=== PATIENT | male | born 1970 | race Caucasian/White ===

== ENCOUNTER 2017-07-30 00:22 | Emergency (ER) | payer BC ==
--- NOTE | 2017-07-30 00:52 | ED ---
General Adult HPI <Te Joshi - Last Filed: 07/30/17 02:41> - General Source: patient, RN notes reviewed Mode of arrival: wheelchair Limitations: altered mental status, physical limitation <Perla Chauhan - Last Filed: 07/30/17 03:14> - General Chief complaint: Fall Stated complaint: Fall/Wrist Injury Time Seen by Provider: 07/30/17 00:36 - History of Present Illness Initial comments: 46-year-old male presents to the emergency department with a chief complaint of left wrist pain. Patient was sitting on the edge of the bed. Patient states that he fell forward he hit his forehead. Patient states he also hurt his left wrist. Patient states he has no pain at this time patient has been drinking alcohol. Patient denies any neck pain or back pain. Patient states is not currently having any other symptoms. They were concerned due to the appearance of the left wrist without that he should be evaluated. Patient denies any recent fever, chills, shortness of breath, chest pain, back pain, abdominal pain , nausea vomiting, numbness or tingling, dysuria or hematuria, constipation or diarrhea, headaches or visual changes, or any other current symptoms. (Perla Chauhan) - Related Data Home Medications Medication Instructions Recorded Confirmed Albuterol Inhaler [Ventolin 1 - 2 puff INHALATION Q6HR PRN 11/07/14 11/07/14 Inhaler] Previous Rx's Medication Instructions Recorded Albuterol Inhaler [Ventolin 1 - 2 puff INHALATION Q6HR PRN #1 11/07/14 Inhaler] inhaler Amoxicillin/Potassium Clav 1 each PO Q12HR #20 tab 11/07/14 [Augmentin 875-125 Tablet] predniSONE 50 mg PO DAILY #5 tab 11/07/14 Allergies Allergy/AdvReac Type Severity Reaction Status Date / Time No Known Allergies Allergy Verified 07/30/17 00:30 Review of Systems ROS Other: All systems not noted in ROS Statement are negative. <Te Joshi - Last Filed: 07/30/17 02:41> ROS Other: All systems not noted in ROS Statement are negative. <Perla Chauhan - Last Filed: 07/30/17 03:14> ROS Statement: Those systems with pertinent positive or pertinent negative responses have been documented in the HPI. Past Medical History Past Medical History: Asthma, Hypertension History of Any Multi-Drug Resistant Organisms: None Reported Past Surgical History: Appendectomy Additional Past Surgical History / Comment(s): left elbow surgical Past Psychological History: No Psychological Hx Reported Smoking Status: Current every day smoker Past Alcohol Use History: Daily, Heavy Past Drug Use History: None Reported <Perla Chauhan - Last Filed: 07/30/17 03:14> General Exam Limitations: altered mental status, physical limitation General appearance: alert, in no apparent distress Head exam: Present: atraumatic, normocephalic, normal inspection Eye exam: Present: normal appearance, PERRL, EOMI. Absent: scleral icterus, conjunctival injection, periorbital swelling ENT exam: Present: normal exam, mucous membranes moist Neck exam: Present: normal inspection. Absent: tenderness, meningismus, lymphadenopathy Respiratory exam: Present: normal lung sounds bilaterally. Absent: respiratory distress, wheezes, rales, rhonchi, stridor Cardiovascular Exam: Present: regular rate, normal rhythm, normal heart sounds. Absent: systolic murmur, diastolic murmur, rubs, gallop, clicks GI/Abdominal exam: Present: soft, normal bowel sounds. Absent: distended, tenderness, guarding, rebound, rigid Extremities exam: Present: normal capillary refill. Absent: normal inspection ( Patient appears to have an obviously deformed left wrist.), full ROM (Limited range of motion of the left wrist. Full range motion of left elbow and shoulder.), tenderness, pedal edema Back exam: Present: normal inspection <Perla Chauhan - Last Filed: 07/30/17 03:14> Vital Signs 07/30/17 07/30/17 07/30/17 00:26 02:20 02:25 Temperature 96.6 F L Pulse Rate 81 89 118 H Respiratory 18 18 16 Rate Blood Pressure 138/93 119/51 150/78 O2 Sat by Pulse 100 97 97 Oximetry 07/30/17 02:37 Temperature Pulse Rate 104 H Respiratory 18 Rate Blood Pressure 137/68 O2 Sat by Pulse 96 Oximetry Procedures - Procedural Sedation Procedural Sedation Start Time: 02:23 Procedural Sedation Stop Time: 02:42 Indications: fracture/dislocation reduction ASA Class: II Mallampati Airway Score: 2 Preparation: cardiac care unit nurse applied, pulse oximeter, capnometry used, supplemental O2 applied, suction/airway equipment at bedside Ketamine: IV Ketamine Dose: 100 Complications: none Patient Tolerated Procedure: well <Te Joshi Huan - Last Filed: 07/30/17 02:41> - Orthopedic Joint Reduction Joint #1 Consent Obtained: verbal consent Time Out Performed: Yes Side: left Joint Reduction Location: wrist Analgesia: procedural sedation Technique Used: traction/counter-traction Post-Reduction Neuro Exam: intact Post-Reduction Vascular Exam: intact Post Reduction X-Ray Obtained: Yes Post Reduction X-Ray Results: reduced Splint Applied: Yes Patient Tolerated Procedure: well - Orthopedic Splinting/Casting Injury #1 Side: left Upper Extremity Injury Location: wrist Upper Extremity Immobilizer: posterior splint <Perla Chauhan - Last Filed: 07/30/17 03:14> Medical Decision Making <Te Joshi Huan - Last Filed: 07/30/17 02:41> - Radiology Data Radiology results: report reviewed, image reviewed <Perla Chauhan - Last Filed: 07/30/17 03:14> - Medical Decision Making 46-year-old male presents for left wrist pain after a fall. At this time patient does appear to have a distal left radial fracture with displacement. Patient underwent reduction. Patient was placed in splint. We discussed follow -up with or so. Patient does not take any blood thinners and is having head injury while intoxicated his CAT scan is negative. This time is at bedside will take the patient home. We did discuss close follow-up we discussed return parameters all questions patient and family stated the [facility] management this plan. All questions have been answered. Patient will be discharged. (Perla Chauhan) Disposition <KathymagdalenaTe Huan - Last Filed: 07/30/17 02:41> Time of Disposition: 03:14 <Perla Chauhan - Last Filed: 07/30/17 03:14> Clinical Impression: Fall, Alcohol intoxication, Left radial fracture, Left ulnar fracture Disposition: HOME SELF-CARE Condition: Stable Instructions: Wrist Fracture in Adults (ED) Additional Instructions: Please use medication as discussed. Please follow up with family doctor if symptoms have not improved over the next two days. Please return to the emergency room if your symptoms increase or worsen or for any other concerns. Referrals: Jesse Sexton MD [Primary Care Provider] - 1-2 days Luisito Sanders MD [STAFF PHYSICIAN] - 1-2 days
--- NOTE | 2017-07-30 00:54 | CT ---
EXAMINATION TYPE: CT brain wo con DATE OF EXAM: 07/30/2017 COMPARISON: NONE HISTORY: fall CT DLP: 2065.80 mGycm. Automated Exposure Control for Dose Reduction was Utilized. TECHNIQUE: CT scan of the head is performed without contrast. FINDINGS: Ventricles and sulci appear normal. There is no mass effect nor midline shift. There is n o sign of intracranial hemorrhage. The calvarium is intact. CONCLUSION: Negative CT scan of the brain.
--- NOTE | 2017-07-30 01:07 | XR ---
EXAMINATION TYPE: XR wrist complete LT DATE OF EXAM: 07/30/2017 COMPARISON: NONE HISTORY: Pain TECHNIQUE: 3 views FINDINGS: There is a comminuted impacted transverse fracture of the distal radial metaphysis. There i s almost 2 cm anterior displacement on the lateral view. There is ulnar styloid process tip fracture. IMPRESSION: displaced impacted comminuted distal radius fracture. Ulnar styloid process fracture.
[2017-07-30] MEDS ORDERED: KETAMINE 10 MG/ML 20 ML VIAL IV ONE (01:30)
[2017-07-30] MEDS ORDERED: KETOROLAC 30 MG/ML 1 ML VIAL IVP STA (01:30)
[2017-07-30 02:39] VITALS: RESP 18
--- NOTE | 2017-07-30 03:12 | XR ---
EXAM: XR Left Wrist Complete, 3 or More Views CLINICAL HISTORY: Reason: Pain TECHNIQUE: Frontal, lateral and oblique views of the left wrist. COMPARISON: No relevant prior studies available. IMPRESSION: Status post cast placement reduction. Fractures of the distal ulna and radius.
[2017-07-30 03:35] VITALS: BP 128/80; PULSE 94; TEMP 98.3
== END 2017-07-30 03:36 | disposition home or self-care (01) ==
LOC: EC 00:22
DX: S52.502A Unspecified fracture of the lower end of left radius, initial encounter for closed fracture (principal); S52.602A Unspecified fracture of lower end of left ulna, initial encounter for closed fracture; F10.129 Alcohol abuse with intoxication, unspecified; F17.200 Nicotine dependence, unspecified, uncomplicated; W06.XXXA Fall from bed, initial encounter
CPT/HCPCS: 73100; 73110; 70450; 99284; 99152; 25605; 96374; J1885

== ENCOUNTER 2023-07-27 15:13 | Emergency (ER) | payer BC ==
[2023-07-27 16:43] VITALS: BP 130/88; PULSE 81; RESP 18; TEMP 98.6
--- NOTE | 2023-07-27 16:46 | ED ---
Allergic Reaction HPI - General Chief complaint: Allergic Reaction Stated complaint: facial swelling-allergic reaction Time Seen by Provider: 07/27/23 16:32 Source: patient Mode of arrival: ambulatory Limitations: no limitations - History of Present Illness Initial Comments: 52-year-old male with a past medical history significant for hypertension on lis inopril presenting to the ED with a chief complaint of facial swelling. Patient has been on [place] for the past 6 months. States he took his usual dose this morning at 6:30. Denies any other new foods new medications. States at approximately 9 started to experience some facial swelling especially around the lips.. Due to this went to [facility] urgent care who provided him 10 mg Decadron IM and advised to present to the ED for further evaluation. Since receiving this medication, patient reports swelling has significantly improved. Denies shortness of breath. No chest pain. No other complaints. - Related Data Home Medications Medication Instructions Recorded Confirmed Albuterol Inhaler [Ventolin 1 - 2 puff INHALATION Q6HR PRN 11/07/14 11/07/14 Inhaler] Previous Rx's Medication Instructions Recorded Albuterol Inhaler [Ventolin 1 - 2 puff INHALATION Q6HR PRN #1 11/07/14 Inhaler] inhaler Amoxicillin/Potassium Clav 1 each PO Q12HR #20 tab 11/07/14 [Augmentin 875-125 Tablet] predniSONE 50 mg PO DAILY #5 tab 11/07/14 methylPREDNISolone Dose Pack 4 mg PO DIRECTED #1 packet 07/27/23 [Medrol Dose Pack] Allergies Allergy/AdvReac Type Severity Reaction Status Date / Time lisinopril Allergy Anaphylaxis Verified 07/27/23 16:25 Review of Systems ROS Statement: Those systems with pertinent positive or pertinent negative responses have been documented in the HPI. ROS Other: All systems not noted in ROS Statement are negative. Past Medical History Past Medical History: Asthma, Hypertension History of Any Multi-Drug Resistant Organisms: None Reported Past Surgical History: Appendectomy Additional Past Surgical History / Comment(s): left elbow surgical Past Psychological History: No Psychological Hx Reported Smoking Status: Current every day smoker Past Alcohol Use History: Daily, Heavy Past Drug Use History: None Reported General Exam Limitations: no limitations General appearance: alert, in no apparent distress ENT exam: Present: other (Perioral edema of the lips. Airway patent. No stridor.) Respiratory exam: Present: wheezes (Some wheezing of the right lung. Patient notes he is a smoker.) Cardiovascular Exam: Present: regular rate, normal rhythm GI/Abdominal exam: Present: soft Neurological exam: Present: alert, oriented X3 Skin exam: Present: warm, dry Course Vital Signs 07/27/23 07/27/23 16:23 16:33 Temperature 98.6 F Pulse Rate 81 Respiratory 16 18 Rate Blood Pressure 130/88 O2 Sat by Pulse 96 Oximetry Medical Decision Making - Medical Decision Making Was pt. sent in by a medical professional or institution (, JUAN, SCREW SUPERVISOR, urgent care, hospital, or group home...) When possible be specific @ -No Did you speak to anyone other than the patient for history (EMS, parent, family, police, friend...)? What history was obtained from this source @ -No Did you review nursing and triage notes (agree or disagree)? Why? @ -I reviewed and agree with nursing and triage notes Were old charts reviewed (outside hosp., previous admission, EMS record, old EKG, old radiological studies, urgent care reports/EKG's, group home records)? Report findings @ -No old charts were reviewed Differential Diagnosis (chest pain, altered mental status, abdominal pain women, abdominal pain men, vaginal bleeding, weakness, fever, dyspnea, syncope, headache, dizziness, GI bleed, back pain, seizure, CVA, palpatations, mental health, musculoskeletal)? @ -Anaphylaxis, urticaria, or edema. This is not meant to be an all-inclusive list. EKG interpreted by me (3pts min.). @ -As above X-rays interpreted by me (1pt min.). @ -None done CT interpreted by me (1pt min.). @ -None done U/S interpreted by me (1pt. min.). @ -None done What testing was considered but not performed or refused? (CT, X-rays, U/S, labs)? Why? @ -None What meds were considered but not given or refused? Why? @ -None Did you discuss the management of the patient with other professionals (professionals i.e. JUAN Conn, SCREW SUPERVISOR, lab, RT, psych nurse, high school social studies tutor, wireless engineer, teacher, title officer, wrapper caser)? Give summary @ -No Was smoking cessation discussed for >3mins.? @ -No Was critical care preformed (if so, how long)? @ -No Were there social determinants of health that impacted care today? How? (Homelessness, low income, unemployed, alcoholism, drug addiction, transportation, low edu. Level, literacy, decrease access to med. care, correction, rehab)? @ -No Was there de-escalation of care discussed even if they declined (Discuss DNR or withdrawal of care, Hospice)? DNR status @ -No What co-morbidities impacted this encounter? (DM, HTN, Smoking, COPD, CAD, Cancer, CVA, ARF, Chemo, Hep., AIDS, mental health diagnosis, sleep apnea, morbid obesity)? @ -Hypertension Was patient admitted / discharged? Hospital course, mention meds given and route, prescriptions, significant lab abnormalities, going to OR and other pertinent info. @ -Discharge 52-year-old male presenting to the ED with complaints of facial swelling starting this morning. Was seen at [facility] urgent care and given 10 mg of Decadron and advised to present to the ED for further evaluation. Since then, patient reports significant improvement of swelling. On exam airway patent without stridor. Patient tolerating secretions well. At this time vital signs stable afebrile. Discharged home in stable condition with prescription for Medrol Dosepak and advised to continue with antihistamines as well. Patient instructed to discontinue lisinopril and follow up with his primary care provider within the week. Discussed return precautions with patient who verbalized agreement. Undiagnosed new problem with uncertain prognosis? @ -No Drug Therapy requiring intensive monitoring for toxicity (Heparin, Nitro, Insulin, Cardizem)? @ -No Were any procedures done? @ -No Diagnosis/symptom? @ -Angioedema Acute, or Chronic, or Acute on Chronic? @ -Acute Uncomplicated (without systemic symptoms) or Complicated (systemic symptoms)? @ -Uncomplicated Side effects of treatment? @ -No Exacerbation, Progression, or Severe Exacerbation? @ -No Poses a threat to life or bodily function? How? (Chest pain, [place], [place], pneumonia, PE, COPD, DKA, ARF, appy, cholecystitis, CVA, Diverticulitis, Homicidal, Suicidal, threat to staff... and all critical care pts) @ -No Disposition Clinical Impression: Angioedema Disposition: HOME SELF-CARE Condition: Good Instructions (If sedation given, give patient instructions): Angioedema (ED) Additional Instructions: Please return to the Emergency Department if symptoms worsen or any other concerns. Please follow-up with your primary care provider. Prescriptions: methylPREDNISolone Dose Pack [Medrol Dose Pack] 4 mg PO DIRECTED #1 packet Is patient prescribed a controlled substance at d/c from ED?: No Referrals: Gagan Vera DO [Primary Care Provider] - 1-2 days Time of Disposition: 16:50
== END 2023-07-27 16:55 | disposition home or self-care (01) ==
LOC: EC 15:13
DX: T78.3XXA Angioneurotic edema, initial encounter (principal); I10 Essential (primary) hypertension; J45.909 Unspecified asthma, uncomplicated; F17.200 Nicotine dependence, unspecified, uncomplicated; Z88.8 Allergy status to other drugs, medicaments and biological substances
CPT/HCPCS: 99283

== ENCOUNTER 2024-04-23 11:52 | Emergency (ER) | payer BC ==
[2024-04-23 12:00] VITALS: TEMP 98
[2024-04-23 12:30] LABS: Basophils # (A) 0.1 k/uL (0-0.2); Basophils % (A) 1 %; Eosinophils # (A) 0.1 k/uL (0-0.7); Eosinophils % (A) 2 %; HCT 47.7 % (39.0-53.0); HGB 16.3 gm/dL (13.0-17.5); Lymphocytes # (A) 2.2 k/uL (1.0-4.8); Lymphocytes % (A) 27 %; MCH 33.7 pg (25.0-35.0); MCHC 34.2 g/dL (31.0-37.0); MCV 98.5 fL (80.0-100.0); Mean Platelet Volume 8.8; Monocytes # (A) 0.4 k/uL (0-1.0); Monocytes % (A) 5 %; Neutrophils # (A) 5.3 k/uL (1.3-7.7); Neutrophils % (A) 64 %; Platelet Count 181 k/uL (150-450); RBC 4.85 m/uL (4.30-5.90); RDW 13.2 % (11.5-15.5); WBC 8.2 k/uL (3.8-10.6)
[2024-04-23 12:34] LABS: ALT 23 U/L (4-49); AST 25 U/L (17-59); African American GFR (CKD) >90 (>60 ml/min/1.73 sqM); Albumin 4.5 g/dL (3.5-5.0); Alkaline Phosphatase 92 U/L (38-126); Anion Gap 8 mmol/L; Blood Urea Nitrogen 12 mg/dL (9-20); Calcium 9.4 mg/dL (8.4-10.2); Carbon Dioxide 22 mmol/L (22-30); Chloride 107 mmol/L (98-107); Glucose 121 mg/dL (74-99); Magnesium 1.7 mg/dL (1.6-2.3); Non-African American GFR(CKD) >90 (>60 ml/min/1.73 sqM); Potassium 4.4 mmol/L (3.5-5.1); Sodium 137 mmol/L (137-145); Total Bilirubin 0.6 mg/dL (0.2-1.3); Total Protein 7.4 g/dL (6.3-8.2)
[2024-04-23 12:41] LABS: Partial Thromboplastin Time 26.9 sec (22.0-30.0); Prothrombin Time 10.6 sec (10.0-12.5)
--- NOTE | 2024-04-23 12:48 | ED ---
Chest Pain HPI - General Source: patient, RN notes reviewed Mode of arrival: ambulatory Limitations: no limitations <Raya Ku - Last Filed: 04/23/24 12:47> - General Source: patient, RN notes reviewed, old records reviewed Mode of arrival: ambulatory Limitations: no limitations - History of Present Illness MD Complaint: chest pain -: days(s) Onset: during rest, during exertion Pain Location: substernal, left chest Pain Radiation: none Severity: moderate Severity scale (1-10): 4 Consistency: constant Improves With: nothing Worsens With: nothing Anginal Symptoms: sense of impending doom Other Symptoms: palpitations Treatments Prior to Arrival: none <Jones Hoyos - Last Filed: 05/01/24 19:23> - General Chief Complaint: Chest Pain Stated Complaint: chest pain Time Seen by Provider: 04/23/24 12:47 - History of Present Illness Initial Comments: Quick note: 53-year-old male presented to ER with a chief complaint of chest discomfort. He states this been going on since this morning. Describes it as a dull consistent pain. Does not radiate. No history of MIs or stents. Denies any shortness of breath, dizziness, lightheadedness, nausea or vomiting. Patient does report a history of hypertension. (Raya Ku) This is a 53-year-old male to the ER for evaluation of chest pain today. Patient is referred persistent chest pain that occurred after he woke up today. Patient has had blood pressure and smoking history of (Jones Hoyos) - Related Data Home Medications Medication Instructions Recorded Confirmed Nebivolol HCl [Bystolic] 10 mg PO HS 04/23/24 04/23/24 Allergies Allergy/AdvReac Type Severity Reaction Status Date / Time lisinopril Allergy Anaphylaxis Verified 04/23/24 14:43 Review of Systems ROS Other: All systems not noted in ROS Statement are negative. <Raya Ku - Last Filed: 04/23/24 12:47> ROS Other: All systems not noted in ROS Statement are negative. <Jones Hoyos - Last Filed: 05/01/24 19:23> ROS Statement: Those systems with pertinent positive or pertinent negative responses have been documented in the HPI. EKG Findings - EKG Comments: EKG Findings:: EKG is sinus 64 CA 170 QRS 94 QTc 377 - EKG Results: EKG: interpreted by ERMD <Jones Hoyos Last Filed: 05/01/24 19:23> Past Medical History Past Medical History: Asthma, Hypertension History of Any Multi-Drug Resistant Organisms: None Reported Past Surgical History: Appendectomy Additional Past Surgical History / Comment(s): left elbow surgical Past Psychological History: No Psychological Hx Reported Smoking Status: Current every day smoker Past Alcohol Use History: Daily, Heavy Past Drug Use History: None Reported <ElmiraRaya - Last Filed: 04/23/24 12:47> General Exam Limitations: no limitations <YinajocelynRaya - Last Filed: 04/23/24 12:47> General appearance: alert, in no apparent distress Head exam: Present: atraumatic, normocephalic, normal inspection Eye exam: Present: normal appearance, PERRL, EOMI. Absent: scleral icterus, conjunctival injection, periorbital swelling ENT exam: Present: normal exam, mucous membranes moist Neck exam: Present: normal inspection. Absent: tenderness, meningismus, lymphadenopathy Respiratory exam: Present: normal lung sounds bilaterally. Absent: respiratory distress, wheezes, rales, rhonchi, stridor Cardiovascular Exam: Present: regular rate, normal rhythm, normal heart sounds. Absent: systolic murmur, diastolic murmur, rubs, gallop, clicks GI/Abdominal exam: Present: soft, normal bowel sounds. Absent: distended, tenderness, guarding, rebound, rigid Extremities exam: Present: normal inspection, full ROM, normal capillary refill. Absent: tenderness, pedal edema, joint swelling, calf tenderness Back exam: Present: normal inspection Neurological exam: Present: alert, oriented X3, CN II-XII intact Psychiatric exam: Present: normal affect, normal mood Skin exam: Present: warm, dry, intact, normal color. Absent: rash <Jones Hoyos - Last Filed: 05/01/24 19:23> - General Exam Comments Initial Comments: Visual Physical Exam Vital signs reviewed General: Well-appearing, nontoxic, no acute distress. Head: Normocephalic, atraumatic Eyes: PERRLA, EOMI ENT: Airway patent Chest: Nonlabored breathing Skin: No visual rash, normal skin tone Neuro: Alert and oriented 3 Musculoskeletal: No gross abnormalities (Raya Ku) Course <Jones Hoyos - Last Filed: 05/01/24 19:23> Vital Signs 04/23/24 04/23/24 04/23/24 11:58 15:00 16:39 Temperature 98 F Pulse Rate 68 78 70 Respiratory 20 18 18 Rate Blood Pressure 162/100 161/90 162/90 O2 Sat by Pulse 99 98 97 Oximetry - Reevaluation(s) Reevaluation #1: 04/23/24 15:04 Medical records reviewed (Jones Hoyos) Reevaluation #2: 04/23/24 15:04 Chest pain is persistent (Jones Hoyos) Reevaluation #3: 04/23/24 15:04 Patient informed of results and questions answered (Jones Hoyos) Reevaluation #4: Was pt. sent in by a medical professional or institution (, PA, SURGEON/PRESIDENT, urgent care, hospital, or [facility]...) When possible be specific @ -no Did you speak to anyone other than the patient for history (EMS, parent, family, police, friend...)? What history was obtained from this source @ -no Did you review nursing and triage notes (agree or disagree)? Why? @ -agree Are old charts reviewed (outside hosp., previous admission, EMS record, old EKG, old radiological studies, urgent care reports/EKG's, [facility] records)? Report findings @ -yes Differential Diagnosis (chest pain, altered mental status, abdominal pain women, abdominal pain men, vaginal bleeding, weakness, fever, dyspnea, syncope, headache, dizziness, GI bleed, back pain, seizure, CVA, palpatations, mental health, musculoskeletal)? @ -prior EKG interpreted by me (3pts min.). @ -yes X-rays interpreted by me (1pt min.). @ -yes negative for acute disease CT interpreted by me (1pt min.). @ -no U/S interpreted by me (1pt. min.). @ -no What testing was considered but not performed or refused? (CT, X-rays, U/S, labs)? Why? @ -none What meds were considered but not given or refused? Why? @ -none Did you discuss the management of the patient with other professionals (professionals i.e. , PA, SURGEON/PRESIDENT, lab, RT, psych nurse, social science manager, component assembler supervisor, teacher, public health service officer, supportive employment case manager)? Give summary @ -no Was smoking cessation discussed for >3mins.? @ -no Was critical care preformed (if so, how long)? @ -no Were there social determinants of health that impacted care today? How? (Homelessness, low income, unemployed, alcoholism, drug addiction, tr ansportation, low edu. Level, literacy, decrease access to med. care, fdc, rehab)? @ -none Was there de-escalation of care discussed even if they declined (Discuss DNR or withdrawal of care, Hospice)? DNR status @ -no What co-morbidities impacted this encounter? (DM, HTN, Smoking, COPD, CAD, Cancer, CVA, ARF, Chemo, Hep., AIDS, mental health diagnosis, sleep apnea, morbid obesity)? @ -none Was patient admitted / discharged? Hospital course, mention meds given and route, prescriptions, significant lab abnormalities, going to OR and other pertinent info. @ - 53-year-old male to ER for chest pain patient chest pain is persistent here in the ER will troponin is negative x 2 EKG normal patient can be discharged home Discharge Undiagnosed new problem with uncertain prognosis? @ -no Drug Therapy requiring intensive monitoring for toxicity (Heparin, Nitro, Insulin, Cardizem)? @ -no Were any procedures done? @ -no Diagnosis/symptom? @ -Chest pain Acute, or Chronic, or Acute on Chronic? @ -Acute Uncomplicated (without systemic symptoms) or Complicated (systemic symptoms)? @ -Complicated Side effects of treatment? @ -no Exacerbation, Progression, or Severe Exacerbation? @ -exacerbation Poses a threat to life or bodily function? How? (Chest pain, [place], [place], pneumonia, PE, COPD, DKA, ARF, appy, cholecystitis, CVA, Diverticulitis, Homicidal, Suicidal, threat to staff... and all critical care pts) @ -yes with chest pain (Jones Hoyos) Reevaluation #5: Differential Chest Pain: Stable Angina, Unstable Angina, STEMI, NSTEMI Aortic Dissection, Pneumothorax, Musculoskeletal, Esophageal Spasm GERD, Cholecystitis, Pancreatitis, Zoster, this is not meant to be an all-inclusive list. (Jones Hoyos) Chest Pain MDM <Raya Ku - Last Filed: 04/23/24 12:47> <Jones Hoyos - Last Filed: 05/01/24 19:23> - MDM I performed the quick note portion of this chart. Electronically signed by Raya Ku PA-C (Raya Ku) 53-year-old male to ER for chest pain patient chest pain is persistent here in t he ER will troponin is negative x 2 EKG normal patient can be discharged home (Jones Hoyos) Disposition <Raya Ku - Last Filed: 04/23/24 12:47> Is patient prescribed a controlled substance at d/c from ED?: No Time of Disposition: 15:30 <Jones Hoyos - Last Filed: 05/01/24 19:23> Clinical Impression: Chest pain Disposition: HOME SELF-CARE Condition: Fair Instructions (If sedation given, give patient instructions): Chest Pain (ED) Referrals: Gagan Vera DO [Primary Care Provider] - 1-2 days
--- NOTE | 2024-04-23 13:31 | XR ---
EXAMINATION TYPE: XR chest 2V DATE OF EXAM: 04/23/2024 COMPARISON: None INDICATION: Chest pain TECHNIQUE: Frontal and lateral views of the chest are obtained. FINDINGS: The heart size is normal. The pulmonary vasculature is normal. The lungs are clear. IMPRESSION: 1. No acute pulmonary process. [facility] Lisa Huerta, , 04/23/2024 1:28 PM
[2024-04-23 15:36] VITALS: RESP 18
[2024-04-23 16:41] VITALS: BP 162/90; PULSE 70
== END 2024-04-23 16:44 | disposition home or self-care (01) ==
LOC: EC 11:52
CPT/HCPCS: 36415; 71046; 80053; 83735; 84484; 85025; 85610; 85730; 93005; 99285

== ENCOUNTER → 2024-05-13 | Outpatient (CLI) | payer BC ==
--- NOTE | 2024-05-14 11:42 | CA ---
Transthoracic Echo Report Name: Te Perez Age: 53 Gender: M : 1970 Exam Date: 05/13/2024 17:44 Exam Location: [facility] Ht (in): 72 Wt (lb): 255 Ordering Physician: Gagan Vera DO Attending/Referring Phys: Quinton Duncan [facility] Economic Research Assistant Marimar Trujillo RDCS Procedure CPT: Indications: R07.89 chest pain Cardiac Hx: Technical Quality: Fair Contrast 1: Total Dose (mL): Contrast 2: Total Dose (mL): MEASUREMENTS (Male / Female) Normal Values 2D ECHO LV Diastolic Diameter PLAX 3.9 cm 4.2 - 5.9 / 3.9 - 5.3 cm LV Systolic Diameter PLAX 2.0 cm IVS Diastolic Thickness 1.5 cm 0.6 - 1.0 / 0.6 - 0.9 cm LVPW Diastolic Thickness 1.2 cm 0.6 - 1.0 / 0.6 - 0.9 cm LV Relative Wall Thickness 0.7 RV Internal Dim ED PLAX 4.2 cm LA Volume 51.6 cm??? 18 - 58 / 22 - 52 cm??? LA Volume Index 20.9 cm???/m??? 16 - 28 cm???/m??? M-MODE Aortic Root Diameter MM 2.9 cm LA Systolic Diameter MM 4.5 cm LA Ao Ratio MM 1.5 AV Cusp Separation MM 2.3 cm DOPPLER AV Peak Velocity 136.5 cm/s AV Peak Gradient 7.5 mmHg AV Mean Velocity 95.9 cm/s AV Mean Gradient 4.1 mmHg AV Velocity Time Integral 25.9 cm LVOT Peak Velocity 101.7 cm/s LVOT Peak Gradient 4.1 mmHg LVOT Velocity Time Integral 22.5 cm MV Area PHT 5.7 cm??? Mitral E Point Velocity 69.3 cm/s Mitral A Point Velocity 83.0 cm/s Mitral E to A Ratio 0.8 MV Deceleration Time 133.7 ms MV E' Velocity 5.8 cm/s Mitral E to MV E' Ratio 12.1 FINDINGS Left Ventricle Moderately increased left ventricular wall thickness. Left ventricular cavity size normal. Normal left ventricular systolic function with no obvious regional wall motion abnormalities. Left ventricular ejection fraction is estimated at 55-60 %. Grade 1 diastolic dysfunction. Right Ventricle Right ventricular dilatation. Right ventricular systolic pressure within normal limits. Right Atrium Mild right atrial dilatation. Left Atrium Normal left atrial size. Mitral Valve Structurally normal mitral valve. No mitral stenosis, regurgitation or prolapse. Aortic Valve Trileaflet aortic valve. No aortic valve stenosis or regurgitation. Tricuspid Valve Structurally normal tricuspid valve. Mild tricuspid regurgitation. Pulmonic Valve Structurally normal pulmonic valve. Pericardium No pericardial effusion. Aorta Normal size aortic root and proximal ascending aorta. CONCLUSIONS Mildly increased left ventricular wall thickness Left ventricular ejection fraction 55-60% Mild right atrial dilation No mitral regurgitation Mild tricuspid regurgitation Previewed by: Dr. Timoteo Edwards DO (Electronically Signed) Final Date: 14 May 2024 11:41
== END | disposition home or self-care (01) ==
LOC: RADECHMAIN 17:42
PROVIDERS: ATTEND Family Medicine
CPT/HCPCS: 93306